=== PATIENT | female | born 1965 | race Caucasian/White ===

== ENCOUNTER 2023-06-22 18:48 | Emergency (ER) | payer BC, SELFPAY ==
[2023-06-22 18:49] VITALS: BP 136/99; PULSE 84; RESP 18; TEMP 36.7; O2SAT 98; BMI 25.8
[2023-06-22 19:03] VITALS: PULSE 72; RESP 16; O2SAT 98
[2023-06-22 19:05] VITALS: RESP 15; O2SAT 100
[2023-06-22 19:10] VITALS: PULSE 78; RESP 19
[2023-06-22] MEDS: Albuterol 2.5 MG/3 ML VIAL.NEB. INHALATION (19:12)
[2023-06-22] MEDS: Ipratropium/Albuterol Sulfate 3 ML AMPUL.NEB INHALATION (19:12)
--- NOTE | 2023-06-22 19:15 | EDS_ITS ---
HPI HPI - URI History of Present Illness Chief Complaint: Shortness of Breath Detail of Chief Complaint: Asthma flare. Recent URI symptoms. Informant: patient and spouse/S.O. Onset/Context/Timing Onset: Days Context: Gradual Onset Timing: Continuous Current Severity: Moderate Maximum Severity: Moderate Associated Symptoms Associated Symptoms: Positive for Nonproductive cough Narrative Narrative: 58-year-old female history of asthma. She has had URI symptoms last couple days. Productive cough of yellowish sputum. No chest pain. No hemoptysis. Today started having wheezing. Tried her inhaler at home without relief. She is currently not on any steroids. She does not have a nebulizer. Denies chest pain. Denies fever. Denies hemoptysis. Denies leg pain or swelling. Prior similar symptoms: Yes Recent Illness/Hospitalization: No ROS ROS ED ROS Narrative URI. Cough with yellow sputum. Wheezing. Review of Systems ROS Unobtainable: Denies due to encephalopathy Constitutional Constitutional ED: Denies chills or fever(s) Eyes Eyes: Denies blurry vision ENT ENT ED: Denies ear pain Respiratory/Chest Respiratory/Chest: Reports cough, dyspnea and sputum Gastrointestinal Gastrointestinal: Denies abdominal pain, diarrhea, nausea or vomiting Genitourinary Genitourinary ED: Denies dysuria or hematuria Musculoskeletal Musculoskeletal: Denies arthralgias Integumentary Denies abscess Neurologic Neurologic: Denies headache(s) Psychiatric Psychiatric: Denies anxiety Endocrine Endocrinology: Denies cold intolerance Hematologic/Lymphatic Hematologic/Lymphatic: Denies easy bleeding or easy bruising Allergic/Immunologic Allergic/Immunologic ED: Denies mouth swelling, tongue swelling or urticaria PFSH [facility] Medical History Asthma Home Medications prednisone 20 mg tablet 40 mg (2 x 20 mg) PO DAILY 7 days #14 tabs 06/22/23 [Rx Last Taken Unknown] Allergy/AdvReac Type Severity Reaction Status Date / Time No Known Allergies Allergy Verified 06/22/23 18:49 Social History Smoking Status: Never smoker EXAM Physical Exam Narrative Exam Narrative: 58-year-old female vital signs stable afebrile. Pulse ox 90% on room air no signs hypoxia. HEENT exam unremarkable. Neck nontender no JVD. Lungs expiratory wheezing bilaterally. No rales or rhonchi. Equal symmetrical. Heart regular rhythm rate about 80 no murmur. Chest wall and ribs nontender. Abdomen soft nontender. Moving all 4 extremities. Nontender. No edema. No cords. Awake and alert. Moving all 4 extremities. Answering questions following commands. Const Vital Signs: 06/22/23 18:49 06/22/23 19:03 06/22/23 19:03 Temperature 98.1 F Temperature Source Temporal Pulse Rate 84 72 Respiratory Rate 18 16 Respiratory Effort Short of Breath Respiratory Depth Shallow Blood Pressure 136/99 H Blood Pressure Mean 111 Pulse Ox 98 98 Oxygen Delivery Method Room Air Room Air Room Air 06/22/23 19:08 06/22/23 19:10 06/22/23 19:05 Temperature Temperature Source Pulse Rate 78 Respiratory Rate 19 H 15 Respiratory Effort Respiratory Depth Blood Pressure Blood Pressure Mean Pulse Ox 100 Oxygen Delivery Method Room Air Room Air Positive well nourished and well developed; Negative for obese, cachectic or contractures General Appearance ED: well developed and NAD; Negative for cachectic, contractures, cyanotic, diaphoretic or pallor Nutritional Appearance: Negative for cachectic or obese HEENT Reports moist mucous membranes; Denies dry mucous membranes normocephalic and atraumatic; Negative for scalp tenderness Face and Sinus: Negative for sinus tenderness Mouth ED: No dry mucous membranes Mouth: No dry mucous membranes Teeth and Gingiva: Negative for caries Throat: posterior oropharynx normal Eyes PERRL and EOMs intact bilaterally General Eye ED: Negative for pale conjunctiva Neck no lymphadenopathy, supple, no meningeal signs and no JVD General: Negative for anterior neck swelling or lymphadenopathy Resp normal respiratory effort and No clear to auscultation bilaterally Resp Narrative: Bilateral expiratory wheezing. No rales or rhonchi. Equal symmetrical. Effort and Inspection: Negative for retractions Auscultation: wheezes; Negative for rales or rhonchi Cardio S1 normal heart sound Rate: regular rate; Negative for bradycardia or tachycardic Rhythm: regular rhythm; Negative for abnormal rhythm GI non-tender, non-distended and no masses Auscultation: normoactive bowel sounds Palpation: soft; Negative for tender or guarding Back/Spine no CVA tenderness and normal ROM General Back: Negative for CVA tenderness Cervical Spine: Negative for cervical spine tenderness Thoracic Spine / Upper Back: Negative for thoracic spinal tenderness Extremity normal to inspection and full ROM General Extremety ED: Negative for cyanosis or tenderness General Extremity: Negative for cyanosis Neuro oriented x3 and CN's II-XII intact bilaterally Sensorium / Orientation: alert, oriented to person, oriented to place and oriented to time; Negative for orientation impaired or lethargic Motor Exam: strength 5/5 throughout Psych mental status grossly normal Appearance: Negative for other Attitude: No agitated Mood & Affect: Negative for depressed, anxious or tearful Skin General Skin Exam: Negative for jaundice or pallor Lesions: no lesions Rashes: no rashes Trauma: Negative for abrasion, laceration or puncture MDM MDM MDM Narrative Medical decision making narrative: 58-year-old female history of asthma with a asthma flare and URI. Treated with DuoNeb and albuterol aerosols. Oral prednisone. Chest x-ray. She deferred viral nasal swab testing. I do not think she needs any lab work. Repeat exam at 7:55 PM patient doing well. Wheezing resolved. Lungs clear. She feels and looks much better. They are comfortable being discharged home. She will be written for prescription for prednisone 40 mg a day for 7 days. F ollow-up with primary care physician if not improving or return if worse. Follow-up with your primary care physician to get a prescription for a nebulizer with albuterol treatments. History & Record Review Discussion w/independent historian: Patient and Family Radiography Chest X-Ray - ED: 1 View, Read by ED Physician, Heart, Lungs, Mediastinum, Bony Structures and No Acute Disease Diagnostic Testing: Clinical Impression(s) from Imaging Studies Chest X-Ray 06/22/23 19:21 IMPRESSION: No acute cardiopulmonary pathology. Probable tiny granulomatous nodules in the right upper and left lower lobes. However would recommend correlation with prior studies when available for radiographic follow-up Electronically Signed: Titi Negron MD at 19:42 EST , Chest x-ray, portable, single view, interpreted by myself shows no acute abnormality. Normal cardiac silhouette. Normal lung gentile. Also read by the radiologist and we agree. Discharge Plan Triage Chief Complaint: Shortness of Breath ED Provider: Jamie Scherer Dx/Rx/DC Orders Clinical Impression: Asthma exacerbation, Viral URI Instructions: Acute Severe Asthma, ED URI, Viral, No Abx (Adult) Prescriptions: New prednisone 20 mg tablet 40 mg PO DAILY 7 Days Qty: 14 0RF Activity Restrictions/Additional Instructions: Prednisone 40 mg a day for the next week starting tomorrow. Use your inhaler as needed. Follow-up with your doctor if not improving or return if worse. Follow-up with your doctor and discuss with them getting a prescription for a nebulizer for home and albuterol treatments for the nebulizer. Disposition Disposition: Home, Self Care
--- NOTE | 2023-06-22 19:21 | RAD_ITS ---
STUDY: X-RAY CHEST REASON FOR EXAM: Female, 58 years old. cough TECHNIQUE: AP portable COMPARISON: None. FINDINGS: The lungs are clear and expanded. Tiny nodular opacity at left base and right upper lobe likely granulomatous There is no demonstrated pleural abnormality. Normal size heart. Normal mediastinum and eva. Normal visualized pulmonary arteries. Normal visualized aortic arch and descending thoracic aorta. Dorsal spine demonstrates mild spondylosis. Normal visualized ribs, clavicles, and shoulders. There is no demonstrated abnormality of the visualized soft tissue structures of the upper abdomen. RAD/Chest 1 View (Portable) IMPRESSION: No acute cardiopulmonary pathology. Probable tiny granulomatous nodules in the right upper and left lower lobes. However would recommend correlation with prior studies when available for radiographic follow-up Electronically Signed: Titi Negron MD at 19:42 EST ,
[2023-06-22] MEDS: predniSONE 20 MG Tablet 60 MG PO (19:28)
[2023-06-22 20:13] VITALS: PULSE 72; RESP 15; O2SAT 100
== END 2023-06-22 20:14 | disposition home or self-care (01) ==
PROVIDERS: Emergency Provider Emergency Medicine; PCP Internal Medicine; Visit Provider Emergency Medicine
DX: J45.901 Unspecified asthma with (acute) exacerbation (principal); J06.9 Acute upper respiratory infection, unspecified
CPT/HCPCS: 71045; 94640; 94760; 99282; A4216

== ENCOUNTER 2024-07-19 23:12 | Emergency (ER) | payer BC, SELFPAY ==
[2024-07-19 23:14] VITALS: BP 121/71; PULSE 54; RESP 16; TEMP 36.7; O2SAT 97; BMI 23.3
[2024-07-19] MEDS: Ondansetron 4 MG/2 ML Vial IV (23:40)
[2024-07-19] MEDS: 0.9% Normal Saline (1000mL) 1,000 ML 999 ML IV (23:40)
[2024-07-19] MEDS: Ketorolac 15 MG/ML Vial IV (23:42)
--- NOTE | 2024-07-19 23:42 | EDS_ITS ---
HPI HPI - GI History of Present Illness Chief Complaint: Nausea/Vomiting Informant: patient and spouse/S.O. Narrative Narrative: Patient has had intractable nausea and vomiting for about 24 hours along with subjective fevers and chills, headaches, some myalgias. No abdominal pain. No diarrhea. No cough or dyspnea. No history of any abdominal surgeries. She feels like she is dehydrated because she can keep any fluids down and she has had significant less urination throughout the course of the day. PFSH PFSH Medical History Asthma Home Medications ?Medication ?Instructions ?Recorded ?Last Taken ?Type albuterol sulfate 90 mcg/actuation 2 puff inhalation Q 4H PRN PRN 07/19/24 Unknown History aerosol inhaler shortness of breath or wheez ing ondansetron 8 mg disintegrating 8 mg PO Q8H PRN nausea and 07/20/24 Unknown Rx tablet vomiting #20 tabs Allergy/AdvReac Type Severity Reaction Status Date / Time No Known Allergies Allergy Verified 07/19/24 23:12 Surgical History no surgical history no surgical history Social History Smoking Status: Never smoker ROS ROS ED Constitutional Constitutional ED: Reports chills, fatigue, fever(s) and subjective Eyes Eyes: Denies change in vision or diplopia ENT ENT ED: Denies rhinorrhea or sore throat Cardiovascular Cardiovascular: Denies chest pain or palpitations Respiratory/Chest Respiratory/Chest: Denies cough or dyspnea Gastrointestinal Gastrointestinal: Reports nausea and vomiting; Denies abdominal pain, diarrhea, hematemesis, hematochezia or melena Genitourinary Genitourinary ED: Denies dysuria or hematuria Musculoskeletal Musculoskeletal: Denies back pain or neck pain Integumentary Denies abscess or rash Neurologic Neurologic: Denies headache(s), paresthesias or weakness Psychiatric Psychiatric: Denies anxiety or suicidal thoughts EXAM Physical Exam Const Vital Signs: 07/19/24 23:14 Temperature 98.0 F Temperature Source Oral Pulse Rate 54 L Respiratory Rate 16 Blood Pressure 121/71 H Blood Pressure Mean 87 Pulse Ox 97 Oxygen Delivery Method Room Air Positive well nourished and well developed Constitutional Narrative: Malaised appearing no distress General Appearance ED: well developed and NAD HEENT Reports moist mucous membranes normocephalic and atraumatic Eyes PERRL and EOMs intact bilaterally Neck full ROM and supple Resp normal respiratory effort and clear to auscultation bilaterally Cardio regular rate, regular rhythm and no murmurs Rate: Negative for tachycardic GI non-tender and non-distended Auscultation: hyperactive bowel sounds Palpation: soft Back/Spine no CVA tenderness General Back: other FROM Extremity normal to inspection General Extremety ED: Negative for edema, pulses abnormal or tenderness General Extremity: Negative for edema or pulses abnormal Neuro oriented x3, CN's II-XII intact bilaterally and no sensory deficits noted Sensorium / Orientation: awake and alert Motor Exam: strength 5/5 throughout Psych mental status grossly normal and thought process normal Skin no rashes or lesions noted and no wounds MDM MDM MDM Narrative Medical decision making narrative: Patient very likely with viral gastritis. Her exam is very benign, but she looks malaised and given that she has not been urinating, likely in need of some IV fluid. This was given along with some IV Zofran and Toradol, on reevaluation she is feeling much better. Ran a set of chemistries, her potassium and bicarb are normal, and the rest of her chemistry panel is normal as well. She is tolerating oral fluids. At this time I think supportive care along with Zofran is best, we discussed reasons to return she is comfortable with that plan. Lab Data Attestation: I reviewed the patient's lab results. Labs: Laboratory Results - last 24 hr 07/19/24 23:29 Sodium 137 Potassium 3.7 Chloride 102 Carbon Dioxide 22.2 Anion Gap 13 BUN 9 Creatinine 0.69 L Estim Creat Clear Calc 82.18 Est GFR (MDRD) Non-Af 100 BUN/Creatinine Ratio 12.8 Glucose 117 H Calcium 9.1 Discharge Plan Triage Chief Complaint: Nausea/Vomiting ED Provider: Gage Holliday Dx/Rx/DC Orders Clinical Impression: Viral gastritis, Mild dehydration Instructions: ED Gastroenteritis, Viral (Adult) Prescriptions: New ondansetron 8 mg tablet,disintegrating 8 mg PO Q8H PRN (Reason: nausea and vomiting) Qty: 20 0RF No Action albuterol sulfate 90 mcg/actuation HFA aerosol inhaler 2 puff INHALATION Q4H PRN PRN (Reason: shortness of breath or wheezing) Primary Care Provider: Priyanka Adames Referrals: Priyanka Adames MD [Primary Care Provider] - 3-5 Days if not improving Print Language: Indonesian Disposition Disposition: Home, Self Care
[2024-07-19 23:58] LABS: Anion Gap 13 (5-15); BUN 9 mg/dL (4-19); BUN/Creat Ratio 12.8 RATIO (10-20); Calcium,Total 9.1 mg/dL (7.6-11.0); Carbon Dioxide 22.2 mmol/L (21.0-32.0); Chloride 102 mmol/L (98-108); Creatinine, Serum 0.69 mg/dL (0.70-1.20); EST Glomerular Filtration Rate 100 (>60); Estimated Creatinine Clearance 82.18 ml/min (50-250); Glucose 117 mg/dL (70-99); Potassium 3.7 mmol/L (3.3-5.1); Sodium Level 137 mmol/L (133-145)
[2024-07-20 01:37] VITALS: BP 105/52; PULSE 78; RESP 18; TEMP 36.7; O2SAT 97
== END 2024-07-20 01:41 | disposition home or self-care (01) ==
PROVIDERS: Emergency Provider Emergency Medicine; PCP Internal Medicine; Visit Provider Emergency Medicine
DX: A08.4 Viral intestinal infection, unspecified (principal); E86.0 Dehydration; M79.10 Myalgia, unspecified site; J45.909 Unspecified asthma, uncomplicated
CPT/HCPCS: 80048; 96361; 96374; 96375; 99283; J2405